=== PATIENT | male | born 1960 | race Caucasian/White ===

== ENCOUNTER 2023-05-06 18:02 | Emergency (ER) | payer MEDICARE, MEDICAID, SELFPAY ==
[2023-05-06 18:06] VITALS: BP 115/86; PULSE 73; RESP 14; TEMP 36.7; O2SAT 98; BMI 25.7
--- NOTE | 2023-05-06 18:51 | ED.SKABFB1 ---
Documented by User: ADIS Ramirez 05/06/23 18:53 HPI - Skin/Abscess/Foreign Bdy General Chief complaint: Skin/Abscess/Foreign Body Stated complaint: RASH Time Seen by Provider: 05/06/23 18:10 Source: patient Mode of arrival: walk-in History of Present Illness HPI narrative: patient is a 63-year-old male who presents to the emergency department with a red, pruritic rash on his legs after cutting poison anand with a chainsaw five days ago. He states the areas to his lower legs have been fluid-filled and opened and drained. He denies any rash to the upper extremities, face. He has not had any difficulty breathing. No medications taken prior to arrival. He has no history of diabetes. Related Data Previous Rx's Medication Instructions Recorded hydroxyzine HCl 25 mg tablet 25 mg PO Q6H PRN itching #20 tabs 05/06/23 methylprednisolone 4 mg tablets in See Rx Instructions .Route 05/06/23 a dose pack (Medrol (Efrain)) .COMPLEX #21 ea Allergies Allergy/AdvReac Type Severity Reaction Status Date / Time acetaminophen [From Fioricet] Allergy Severe Verified 05/06/23 18:06 butalbital [From Fioricet] Allergy Severe Verified 05/06/23 18:06 caffeine [From Fioricet] Allergy Severe Verified 05/06/23 18:06 shell fish Allergy Severe Uncoded 05/06/23 18:06 Review of Systems ROS Constitutional Denies: fever or chills Ears, nose, mouth, and throat Denies: throat pain Respiratory Denies: shortness of breath Gastrointestinal Denies: nausea or vomiting Integumentary/Breast Reports: rash and itching Hematologic/Lymphatic Denies: easy bruising Allergic/Immunologic Denies: hives Exam Narrative Exam Narrative: Gen.: Awake, alert, in no distress Head: Normocephalic, atraumatic ENT: Moist mucous membranes Respiratory: No respiratory distress Extremities: Moves extremities equally Psych: Normal mood and affect Neuro: No focal neuro deficit Skin: Warm, dry, multiple areas of open vesicles to the anterior and posterior legs. No red streaking or circumferential erythema. No petechiae or purpura. No mucous membrane involvement. No extension of the rash to the palms of the hands or soles of the feet. Constitutional Vital Signs, click to edit/add: Last Vital Signs Temp 98.1 F 05/06/23 18:06 Pulse 73 05/06/23 18:06 Resp 14 05/06/23 18:06 BP 115/86 05/06/23 18:06 Pulse Ox 98 05/06/23 18:06 O2 Del Method Room Air 05/06/23 18:06 Course Vital Signs Vital signs: Vital Signs Temperature 98.1 F 05/06/23 18:06 Pulse Rate 73 05/06/23 18:06 Respiratory Rate 14 05/06/23 18:06 Blood Pressure 115/86 05/06/23 18:06 Pulse Oximetry 98 05/06/23 18:06 Oxygen Delivery Method Room Air 05/06/23 18:06 Temperature 98.1 F 05/06/23 18:06 Pulse Rate 73 05/06/23 18:06 Respiratory Rate 14 05/06/23 18:06 Blood Pressure 115/86 05/06/23 18:06 Pulse Oximetry 98 05/06/23 18:06 Oxygen Delivery Method Room Air 05/06/23 18:06 MDM - Skin/Abscess/Foreign Bdy MDM Narrative Medical decision making narrative: exam is consistent with contact dermatitis. Patient will be treated with antihistamines and steroids. No evidence of secondary cellulitis at this time. Follow-up with PCP and return to the Emergency Room if symptoms change or worsen. Discharge Plan Discharge Chief Complaint: Skin/Abscess/Foreign Body Clinical Impression: Skin rash, Contact dermatitis Patient Disposition: Home, Self-Care Time of Disposition Decision: 18:50 Condition: Good Prescriptions / Home Meds: New hydroxyzine HCl 25 mg tablet 25 mg PO Q6H PRN (Reason: itching) Qty: 20 0RF methylprednisolone [Medrol (Efrain)] 4 mg tablets,dose pack See Rx Instructions .ROUTE .COMPLEX Qty: 21 0RF Rx Instructions: Taper as directed Instructions: Contact Dermatitis (ED), Acute Rash (ED) Stand Alone Forms: Portal Instructions Referrals: PHILLIP JIMENEZ [Primary Care Provider] - 1 week Discharge Date/Time: 05/06/23 18:57 Documented by User: Hector Mcfarland MD 05/06/23 20:21 HPI - Skin/Abscess/Foreign Bdy General Chief complaint: Skin/Abscess/Foreign Body Stated complaint: RASH Time Seen by Provider: 05/06/23 18:10 Related Data Previous Rx's Medication Instructions Recorded hydroxyzine HCl 25 mg tablet 25 mg PO Q6H PRN itching #20 tabs 05/06/23 methylprednisolone 4 mg tablets in See Rx Instructions .Route 05/06/23 a dose pack (Medrol (Efrain)) .COMPLEX #21 ea Allergies Allergy/AdvReac Type Severity Reaction Status Date / Time acetaminophen [From Fioricet] Allergy Severe Verified 05/06/23 18:06 butalbital [From Fioricet] Allergy Severe Verified 05/06/23 18:06 caffeine [From Fioricet] Allergy Severe Verified 05/06/23 18:06 shell fish Allergy Severe Uncoded 05/06/23 18:06 Exam Constitutional Vital Signs, click to edit/add: Last Vital Signs Temp 98.1 F 05/06/23 18:06 Pulse 73 05/06/23 18:06 Resp 14 05/06/23 18:06 BP 115/86 05/06/23 18:06 Pulse Ox 98 05/06/23 18:06 O2 Del Method Room Air 05/06/23 18:06 Course Vital Signs Vital signs: Vital Signs Temperature 98.1 F 05/06/23 18:06 Pulse Rate 73 05/06/23 18:06 Respiratory Rate 14 05/06/23 18:06 Blood Pressure 115/86 05/06/23 18:06 Pulse Oximetry 98 05/06/23 18:06 Oxygen Delivery Method Room Air 05/06/23 18:06 Temperature 98.1 F 05/06/23 18:06 Pulse Rate 73 05/06/23 18:06 Respiratory Rate 14 05/06/23 18:06 Blood Pressure 115/86 05/06/23 18:06 Pulse Oximetry 98 05/06/23 18:06 Oxygen Delivery Method Room Air 05/06/23 18:06 MDM - Skin/Abscess/Foreign Bdy MDM Narrative Medical decision making narrative: exam is consistent with contact dermatitis. Patient will be treated with antihistamines and steroids. No evidence of secondary cellulitis at this time. Follow-up with PCP and return to the Emergency Room if symptoms change or worsen. I, Dr Mcfarland, have reviewed the above progress note and course of action in the ER; agree with the above. I have personally seen and evaluated this patient, gone over history and physical, and discussed disposition and treatment plan with the patient. Discharge Plan Discharge Chief Complaint: Skin/Abscess/Foreign Body Clinical Impression: Skin rash, Contact dermatitis Patient Disposition: Home, Self-Care Time of Disposition Decision: 18:50 Condition: Good Prescriptions / Home Meds: New hydroxyzine HCl 25 mg tablet 25 mg PO Q6H PRN (Reason: itching) Qty: 20 0RF methylprednisolone [Medrol (Efrain)] 4 mg tablets,dose pack See Rx Instructions .ROUTE .COMPLEX Qty: 21 0RF Rx Instructions: Taper as directed Instructions: Contact Dermatitis (ED), Acute Rash (ED) Stand Alone Forms: Portal Instructions Referrals: PHILLIP JIMENEZ [Primary Care Provider] - 1 week Discharge Date/Time: 05/06/23 18:57
== END 2023-05-06 18:57 | disposition home or self-care (01) ==
PROVIDERS: Emergency Provider Emergency Medicine; PCP Family Medicine
DX: L25.9 Unspecified contact dermatitis, unspecified cause (principal); R21 Rash and other nonspecific skin eruption
CPT/HCPCS: 99283

== ENCOUNTER 2023-06-08 14:51 | Emergency (ER) | payer MEDICARE, MEDICAID, SELFPAY ==
[2023-06-08 14:54] VITALS: BP 123/90; PULSE 108; RESP 18; TEMP 36.9; O2SAT 96; BMI 25.7
--- NOTE | 2023-06-08 15:08 | ED.GENADUL1 ---
HPI - General Adult General Chief complaint: Allergic Reaction Stated complaint: ALLERGIC REACTION Time Seen by Provider: 06/08/23 15:02 Source: patient Mode of arrival: walk-in History of Present Illness HPI narrative: patient got into [facility] and developed itchy rash to both legs. He was evaluated in the ED and prescribed hydroxyzine and medro dose efrain. he finished those weeks ago. Now he returns for continue/return of the rash. He asked for a steroid injection. he also complains of GERD and is out of his PPI prescription and asks for a refill. Related Data Previous Rx's Medication Instructions Recorded hydroxyzine HCl 25 mg tablet 25 mg PO Q6H PRN itching #20 tabs 05/06/23 methylprednisolone 4 mg tablets in See Rx Instructions .Route 05/06/23 a dose pack (Medrol (Efrain)) .COMPLEX #21 ea hydroxyzine HCl 25 mg tablet 25 mg PO Q8H PRN itching #30 tabs 06/08/23 pantoprazole 40 mg tablet,delayed 40 mg PO DAILY #30 tabs 06/08/23 release (Protonix) Allergies Allergy/AdvReac Type Severity Reaction Status Date / Time acetaminophen [From Fioricet] Allergy Severe Verified 05/06/23 18:06 butalbital [From Fioricet] Allergy Severe Verified 05/06/23 18:06 caffeine [From Fioricet] Allergy Severe Verified 05/06/23 18:06 shell fish Allergy Severe Uncoded 05/06/23 18:06 Exam Narrative Exam Narrative: Nurses notes and vital signs reviewed and patient is not hypoxic. afebrile General: Well-appearing and in no apparent distress. Skin: Warm, dry, no pallor noted. both lower extremities with skin changes consistent with contact dermatitis Head: Normocephalic, atraumatic. Neck: Supple, non-tender. no cervical lymphadenopathy Eye: Pupils are equal, round and EOMI. No scleral icterus. Ears, Nose, Mouth, and Throat: Oral mucosa is moist, no posterior oropharynx erythema, uvula is mid-line, noted to have her throat swelling. Cardiovascular: Regular Rate and Rhythm without murmur, gallop or rub. Respiratory: No accessory muscle use or respiratory distress. Lungs are clear to auscultation, no wheezing, rales or rhonchi Musculoskeletal: normal ROM. Neurological: A&O x4. No cranial nerve dysfunction observed. No truncal ataxia. Moves all extremities. Sensation intact. Psychiatric: Cooperative and interactive. Normal mood and affect. Constitutional Vital Signs, click to edit/add: Last Vital Signs Temp 98.5 F 06/08/23 14:54 Pulse 108 H 06/08/23 14:54 Resp 18 06/08/23 14:54 BP 123/90 06/08/23 14:54 Pulse Ox 96 06/08/23 14:54 O2 Del Method Room Air 06/08/23 14:54 Course Vital Signs Vital signs: Vital Signs Temperature 98.5 F 06/08/23 14:54 Pulse Rate 108 H 06/08/23 14:54 Respiratory Rate 18 06/08/23 14:54 Blood Pressure 123/90 06/08/23 14:54 Pulse Oximetry 96 06/08/23 14:54 Oxygen Delivery Method Room Air 06/08/23 14:54 Temperature 98.5 F 06/08/23 14:54 Pulse Rate 108 H 06/08/23 14:54 Respiratory Rate 18 06/08/23 14:54 Blood Pressure 123/90 06/08/23 14:54 Pulse Oximetry 96 06/08/23 14:54 Oxygen Delivery Method Room Air 06/08/23 14:54 Medical Decision Making MDM Narrative Medical decision making narrative: patient given IM Solu-Medrol. He was discharged home with prescriptions for hydroxyzine and Protonix. Discharge Plan Discharge Chief Complaint: Allergic Reaction Clinical Impression: GERD (gastroesophageal reflux disease), Contact dermatitis Patient Disposition: Home, Self-Care Time of Disposition Decision: 15:07 Prescriptions / Home Meds: New pantoprazole [Protonix] 40 mg tablet,delayed release (DR/EC) 40 mg PO DAILY Qty: 30 0RF hydroxyzine HCl 25 mg tablet 25 mg PO Q8H PRN (Reason: itching) Qty: 30 0RF No Action hydroxyzine HCl 25 mg tablet 25 mg PO Q6H PRN (Reason: itching) Qty: 20 0RF methylprednisolone [Medrol (Efrain)] 4 mg tablets,dose pack See Rx Instructions .ROUTE .COMPLEX Qty: 21 0RF Rx Instructions: Taper as directed Instructions: Contact Dermatitis (ED), GERD (Gastroesophageal Reflux Disease) (ED) Stand Alone Forms: Portal Instructions Referrals: Physician,Non-Staff, MD [Primary Care Provider] - 1 week
[2023-06-08] MEDS: METHYLPREDNISOLONE SOD SUCC PF 125 MG/2 ML VIAL IM (15:16)
== END 2023-06-08 15:22 | disposition home or self-care (01) ==
PROVIDERS: Emergency Provider Emergency Medicine
DX: L25.9 Unspecified contact dermatitis, unspecified cause (principal); K21.9 Gastro-esophageal reflux disease without esophagitis
CPT/HCPCS: 96372; 99284; J2930